=== PATIENT | female | born 1970 | race Caucasian/White ===

== ENCOUNTER 2019-03-21 08:56 | Emergency (ER) | payer BC ==
--- OUTSIDE RECORDS SUMMARY | 2019-03-21 08:58 | XMS REPORT ---
:1970 Author Organization eClinicalWorks Care Team Providers Name Role Phone Harshad Rosario Provider Role Unavailable Allergies, Adverse Reactions, Alerts Substance Reaction Event Type Zoloft blurred vision Drug Allergy Celexa blurred vision Drug Allergy BuSpar made anxiety worse Drug Allergy Problems Problem Type Condition Code Onset Dates Condition Status Problem Cramp in muscle R25.2 Active Problem Depression with anxiety F41.8 Active Problem Elevated blood pressure reading R03.0 Active without diagnosis of hypertension Assessment Cough R05 Active Assessment Epigastric abdominal pain R10.13 Active Problem Seasonal allergic rhinitis, J30.2 Active unspecified trigger Problem Epigastric abdominal pain R10.13 Active Problem Pharyngitis, unspecified etiology J02.9 Active Problem Rosacea L71.9 Active Problem Lumbar sprain S33.5XXA Active Problem Cough R05 Active Problem Tendinitis M77.9 Active Medications Medication Code Code Instructions Start End Status Dosage System Date Date Prozac [facility] 10988265888 10 MG Orally Active 1 capsule Once a day in the morning NuvaRing [facility] 51881351248 0.12-0.015 Active 1 ring MG/24HR Vaginal Cyclobenzaprine ND 19521111319 10 MG Orally Active 1 tablet HCl Three times a as needed day Omeprazole ND 12189772581 40 MG Orally Jun 06, Active 1 capsule Once a day 2019 Results No Known Results Summary Purpose eClinicalWorks Submission
--- OUTSIDE RECORDS SUMMARY | 2019-03-21 08:58 | XMS REPORT ---
:1970 Author Organization eClinicalWorks Care Team Providers Name Role Phone Keesha Sandoval Provider Role Unavailable Allergies, Adverse Reactions, Alerts Substance Reaction Event Type Zoloft blurred vision Drug Allergy Celexa blurred vision Drug Allergy BuSpar made anxiety worse Drug Allergy Problems Problem Type Condition Code Onset Dates Condition Status Assessment Pharyngitis, unspecified etiology J02.9 Active Problem Elevated blood pressure reading R03.0 Active without diagnosis of hypertension Assessment Seasonal allergic rhinitis, J30.2 Active unspecified trigger Problem Seasonal allergic rhinitis, J30.2 Active unspecified trigger Problem Cramp in muscle R25.2 Active Problem Pharyngitis, unspecified etiology J02.9 Active Problem Lumbar sprain S33.5XXA Active Problem Depression with anxiety F41.8 Active Problem Tendinitis M77.9 Active Problem Rosacea L71.9 Active Medications Medication Code Code Instructions Start End Status Dosage System Date Date NuvaRing [facility] 90075202604 0.12-0.015 Active 1 ring MG/24HR Vaginal Prozac ND 03387713108 10 MG Orally Active 1 capsule Once a day in the morning Cyclobenzaprine ND 56004099498 10 MG Orally Active 1 tablet HCl Three times a as needed day Results Name Result Date Reference Range Unit Abnormality Flag STREP A RAPID ----Result NEG [id number] Summary Purpose eClinicalWorks Submission
--- OUTSIDE RECORDS SUMMARY | 2019-03-21 08:58 | XMS REPORT ---
:1970 Author Organization eClinicalWorks Care Team Providers Name Role Phone Sparkle Patriciay Provider Role Unavailable Allergies, Adverse Reactions, Alerts Substance Reaction Event Type Zoloft blurred vision Drug Allergy Celexa blurred vision Drug Allergy BuSpar made anxiety worse Drug Allergy Problems Problem Type Condition Code Onset Dates Condition Status Problem Depression with anxiety F41.8 Active Problem Rosacea L71.9 Active Problem Lumbar sprain S33.5XXA Active Problem Stress at home F43.9 Active Problem Seasonal allergic rhinitis, J30.2 Active unspecified trigger Problem Gastroesophageal reflux disease K21.0 Active with esophagitis Problem Cough R05 Active Problem Tendinitis M77.9 Active Problem Pharyngitis, unspecified etiology J02.9 Active Problem Epigastric abdominal pain R10.13 Active Assessment Gastroesophageal reflux disease K21.0 Active with esophagitis Problem Cramp in muscle R25.2 Active Assessment Stress at home F43.9 Active Problem Elevated blood pressure reading R03.0 Active without diagnosis of hypertension Medications Medication Code Code Instructions Start End Status Dosage System Date Date Omeprazole [facility] 06264535203 40 MG Orally Jun 06, Active 1 capsule Once a day 2018 Prozac [facility] 91054768172 10 MG Orally Active 1 capsule Once a day in the morning Cyclobenzaprine [facility] 92535772315 10 MG Orally Active 1 tablet HCl Three times a as needed day NuvaRing [facility] 24494457188 0.12-0.015 Active 1 ring MG/24HR Vaginal Results No Known Results Summary Purpose eClinicalWorks Submission
--- OUTSIDE RECORDS SUMMARY | 2019-03-21 08:59 | XMS REPORT ---
:1970 Author Organization eClinicalWorks Care Team Providers Name Role Phone Jeniffer Patriciaa Provider Role Unavailable Allergies, Adverse Reactions, Alerts Substance Reaction Event Type Zoloft blurred vision Drug Allergy Celexa blurred vision Drug Allergy BuSpar made anxiety worse Drug Allergy Problems Problem Type Condition Code Onset Dates Condition Status Problem Rosacea L71.9 Active Problem Cough R05 Active Problem Tendinitis M77.9 Active Problem Contusion of right hand, initial S60.221A Active encounter Problem Gastroesophageal reflux disease K21.0 Active with esophagitis Problem Weight gain R63.5 Active Problem Pharyngitis, unspecified etiology J02.9 Active Problem Epigastric abdominal pain R10.13 Active Problem Stress at home F43.9 Active Problem Seasonal allergic rhinitis, J30.2 Active unspecified trigger Assessment Elevated blood pressure reading R03.0 Active without diagnosis of hypertension Assessment Gastroesophageal reflux disease K21.0 Active with esophagitis Assessment Weight gain R63.5 Active Problem Cramp in muscle R25.2 Active Problem Elevated blood pressure reading R03.0 Active without diagnosis of hypertension Assessment Depression with anxiety F41.8 Active Problem Depression with anxiety F41.8 Active Problem Lumbar sprain S33.5XXA Active Medications Medication Code Code Instructions Start End Status Dosage System Date Date NuvaRing [facility] 87324150384 0.12-0.015 Active 1 ring MG/24HR Vaginal Prozac [facility] 67488002524 10 MG Orally Active 1 capsule Once a day in the morning Cyclobenzaprine [facility] 43736324742 10 MG Orally Active 1 tablet HCl Three times a as needed day Omeprazole [facility] 79227176168 40 MG Orally Jun 06, Active 1 capsule Once a day 2018 Results No Known Results Summary Purpose eClinicalWorks Submission
[2019-03-21] MEDS ORDERED: IBUPROFEN 200 MG TAB PO ONE (09:16)
[2019-03-21] MEDS ORDERED: ACETAMINOPHEN 325 MG TABLET ONE (09:16)
[2019-03-21] MEDS ORDERED: IBUPROFEN 400 MG TAB ONE (09:16)
--- NOTE | 2019-03-21 09:35 | RAD REPORT ---
EXAM DESCRIPTION: RAD - Foot Left 3 View - 03/21/2019 9:28 am CLINICAL HISTORY: PAIN COMPARISON: No comparisons FINDINGS: Prominent posterior and plantar calcaneal spurs are noted. No acute fracture or dislocatio n evident.
--- NOTE | 2019-03-21 09:51 | ER ---
Nurse's Notes [facility] Name: Tamika Fuller Age: 48 yrs Sex: Female : 1970 Arrival Date: 03/21/2019 Time: 09:00 Bed 16 Private MD: None, None Diagnosis: Pain in left foot Presentation: 03/21 09:09 Presenting complaint: Patient states: was walking and left foot seized up on he, can;t iw put pressure on foot now. Transition of care: patient was not received from another setting of care. Onset of symptoms was March 21, 2019. 09:09 Method Of Arrival: Wheelchair iw 09:09 Acuity: SUSANNE 4 iw 09:10 Transition of care: patient was not received from another setting of care. Onset of tw2 symptoms was March 21, 2019. Risk Assessment: Do you want to hurt yourself or someone else? Patient reports no desire to harm self or others. Initial Sepsis Screen: Does the patient meet any 2 criteria? No. Patient's initial sepsis screen is negative. Does the patient have a suspected source of infection? No. Patient's initial sepsis screen is negative. Care prior to arrival: None. 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 - Social history:: Smoking status: . - Ebola Screening: : Patient denies travel to an Ebola-affected area in the 21 days before illness onset. Screenin:09 Abuse screen: Denies threats or abuse. Nutritional screening: No deficits noted. tw2 Tuberculosis screening: No symptoms or risk factors identified. Fall Risk None identified. Assessment: 09:16 General: Appears in no apparent distress. Behavior is calm, cooperative, appropriate tw2 for age. Pain: Complains of pain in left foot. Neuro: Level of Consciousness is awake, alert, obeys commands, Oriented to person, place, time, situation. Cardiovascular: Patient's skin is warm and dry. Respiratory: Airway is patent Respiratory effort is even, unlabored, Respiratory pattern is regular, symmetrical. GI: No signs and/or symptoms were reported involving the gastrointestinal system. : No signs and/or symptoms were reported regarding the genitourinary system. EENT: No signs and/or symptoms were reported regarding the EENT system. Derm: No signs and/or symptoms reported regarding the dermatologic system. Musculoskeletal: Circulation, motion, and sensation intact. Range of motion: intact in all extremities, Reports pain in left foot. Vital Signs: 09:11 BP 134 / 108; Pulse 101; Resp 16 S; Temp 97.4; Pulse Ox 98% on R/A; Weight 112.49 kg; iw Height 5 ft. 8 in. (172.72 cm); Pain 7/10; 10:09 BP 128 / 85; Pulse 84; Resp 17; Pulse Ox 99% on R/A; tw2 09:11 Body Mass Index 37.71 (112.49 kg, 172.72 cm) iw ED Course: 09:00 Patient arrived in ED. mr 09:00 None, None is Private Physician. mr 09:01 Justin West [facility]-C [facility]. la1 09:01 Estevan Fish MD is Attending Physician. la1 09:01 Bed in low position. Call light in reach. tw2 09:06 Alanna Hernandez, RN is Primary Nurse. tw2 09:09 Arm band placed on. tw2 09:10 Triage completed. iw 09:17 No provider procedures requiring assistance completed. Patient did not have IV access tw2 during this emergency room visit. 09:28 Foot Left 3 View XRAY In Process Unspecified. EDMS Administered Medications: 09:19 Drug: Motrin 600 mg Route: PO; tw2 10:08 Follow up: Response: No adverse reaction tw2 09:19 Drug: Tylenol 650 mg Route: PO; tw2 10:08 Follow up: Response: No adverse reaction tw2 Outcome: 09:50 Discharge ordered by . la1 10:09 Discharged to home via wheelchair, with significant other. tw2 10:09 Condition: stable 10:09 Discharge instructions given to patient, significant other, Instructed on discharge instructions, follow up and referral plans. medication usage, safety practices, Demonstrated understanding of instructions, follow-up care, medications, Prescriptions given X 1. 10:10 Patient left the ED. tw2 Signatures: Dispatcher [employer] Sylwia Carr Irene, RN RN Justin Goodwin, HIM SPECIALIST-C HIM SPECIALIST-Kathie1 Alanna Hernandez RN RN tw2
--- NOTE | 2019-03-21 09:51 | EDPHYS ---
Physician Documentation [facility] Name: Tamika Fuller Age: 48 yrs Sex: Female : 1970 Arrival Date: 03/21/2019 Time: 09:00 Bed 16 Private MD: None, None ED Physician Estevan Fish HPI: 03/21 09:10 This 48 yrs old Female presents to ER via Unassigned with complaints of Foot la1 Pain. 09:10 The patient presents with pain, that is acute. The complaints affect the lateral aspect la1 of left foot. Context: The problem was sustained at work. Onset: The symptoms/episode began/occurred just prior to arrival. Modifying factors: The symptoms are alleviated by nothing. the symptoms are aggravated by movement. Associated signs and symptoms: Pertinent negatives calf tenderness, numbness, tingling, warmth. Treatment prior to arrival includes: no previous treatment. Severity of symptoms: At their worst the symptoms were mild. The patient has not experienced similar symptoms in the past. 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 - Social history:: Smoking status: . - Ebola Screening: : Patient denies travel to an Ebola-affected area in the 21 days before illness onset. ROS: 09:11 Constitutional: Negative for fever, chills, and weight loss, Eyes: Negative for injury, la1 pain, redness, and discharge, Cardiovascular: Negative for chest pain, palpitations, and edema, Respiratory: Negative for shortness of breath, cough, wheezing, and pleuritic chest pain, Abdomen/GI: Negative for abdominal pain, nausea, vomiting, diarrhea, and constipation. 09:11 MS/extremity: Positive for pain, of the lateral side of left foot. Exam: 09:11 Constitutional: This is a well developed, well nourished patient who is awake, alert, la1 and in no acute distress. Head/Face: Normocephalic, atraumatic. Chest/axilla: Normal chest wall appearance and motion. Nontender with no deformity. No lesions are appreciated. Back: No spinal tenderness. No costovertebral tenderness. Full range of motion. Skin: Warm, dry with normal turgor. Normal color with no rashes, no lesions, and no evidence of cellulitis. MS/ Extremity: Pulses equal, no cyanosis. Neurovascular intact. Full, normal range of motion. Vital Signs: 09:11 BP 134 / 108; Pulse 101; Resp 16 S; Temp 97.4; Pulse Ox 98% on R/A; Weight 112.49 kg; iw Height 5 ft. 8 in. (172.72 cm); Pain 7/10; 10:09 BP 128 / 85; Pulse 84; Resp 17; Pulse Ox 99% on R/A; tw2 09:11 Body Mass Index 37.71 (112.49 kg, 172.72 cm) iw MDM: 09:03 Patient medically screened. la1 09:49 Data reviewed: vital signs, nurses notes, radiologic studies, plain films. 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 03/21 09:09 Order name: Foot Left 3 View XRAY; Complete Time: 09:42 la1 12 09:49 Order name: Ortho shoe; Complete Time: 09:59 la1 Administered Medications: 09:19 Drug: Motrin 600 mg Route: PO; tw2 10:08 Follow up: Response: No adverse reaction tw2 09:19 Drug: Tylenol 650 mg Route: PO; tw2 10:08 Follow up: Response: No adverse reaction tw2 Disposition: 16:44 Co-signature as Attending Physician, Estevan Fish MD I agree with the assessment and kdr plan of care. Disposition: 03/21/19 09:50 Discharged to Home. Impression: Pain in left foot. - Condition is Stable. - Discharge Instructions: Musculoskeletal Pain, Foot Pain. - Prescriptions for meloxicam 15 mg Oral tablet - take 1 tablet by ORAL route once daily; 15 tablet. - Medication Reconciliation Form, Thank You Letter, Work release form form. - Follow up: Private Physician; When: 2 - 3 days; Reason: Recheck today's complaints, Re-evaluation by your physician. - Problem is new. - Symptoms are unchanged. Signatures: Dispatcher [employer] EDAL Estevan Fish MD MD kdr Fanta Aguilar RN RN iw Justin West, SUPPLY CHAIN ASSISTANT-C SUPPLY CHAIN ASSISTANT-Kathie1 Alanna Hernandez RN RN tw2 Corrections: (The following items were deleted from the chart) 10:10 09:50 03/21/2019 09:50 Discharged to Home. Impression: Pain in left foot. Condition is tw2 Stable. Forms are Work release form, Medication Reconciliation Form, Thank You Letter, Antibiotic Education, Prescription Opioid Use. Follow up: Private Physician; When: 2 - 3 days; Reason: Recheck today's complaints, Re-evaluation by your physician. Problem is new. Symptoms are unchanged. la1
[2019-03-21 10:59] VITALS: TEMP 97.4
[2019-03-21 11:01] VITALS: BP 128/85; O2SAT 99
== END 2019-03-21 10:10 | disposition home or self-care (01) ==
LOC: ER 08:56
DX: M79.672 Pain in left foot (principal)
CPT/HCPCS: 99283

== ENCOUNTER 2023-11-30 12:03 | Day surgery (SDC) | payer BC ==
[2023-11-29 15:50] LABS: Absolute Basophils 0.1 K/uL (0-0.5); Absolute Eosinophils 0.2 K/uL (0-0.5); Absolute Lymphocytes (CBC) 2.7 K/uL (0.7-4.9); Absolute Monocytes 0.8 K/uL (0.1-1.3); Absolute Neutrophil 5.9 K/uL (1.8-8.0); Basophils % 0.5 % (0-1.3); Eosinophils % 2.1 % (0-4.4); Hematocrit 36.2 % (36.0-45.0); Hemoglobin 11.4 g/dL (12.0-15.0); Lymphocytes % 28.3 % (15.3-44.8); MCH 24.1 pg (27.0-35.0); MCHC 31.6 g/dL (32.0-36.0); MCV 76.4 fL (80-100); MPV 8.1 fL (7.6-11.3); Monocytes % 8.3 % (3.3-12.3); Neutrophils % 60.8 % (41.7-73.7); Platelets 302 thou/uL (152-406); RBC Red Blood Cell Count 4.73 M/uL (3.86-4.86); Red Cell Distribution Width 15.6 % (12.1-15.2)
--- NOTE | 2023-11-29 15:56 | RAD REPORT ---
EXAM DESCRIPTION: RAD - Chest Pa And Lat (2 Views) - 11/29/2023 3:50 pm CLINICAL HISTORY: pre op pending back mass removals Chest pain. COMPARISON: Chest Pa And Lat (2 Views) dated 09/01/2019 TECHNIQUE: PA and lateral views of the chest were obtained. FINDINGS: The lungs are hyperexpanded but clear. The heart is upper limit of normal in size. No frac ture or aggressive bony process. IMPRESSION: Hyperexpanded lungs without acute process identified. The USPSTF recommends annual screening for lung cancer with low-dose CT (LDCT) in adults aged 50 to 8 0 years who have a 20 pack-year smoking history and currently smoke or have quit within the past 15 y ears.
[2023-11-29 16:02] LABS: PT Prothrombin Time 12.3 SECONDS (9.4-12.5); PTT, Activated Partial Thromb 36.3 SECONDS (24.3-36.9); Protime INR 1.1
[2023-11-30] MEDS: Ringers Lactate 1,000 ML IV ONE (12:50)
[2023-11-30] MEDS ORDERED: LIDOCAINE 1% MPF 5 ML VIAL ONE (13:16)
[2023-11-30] MEDS ORDERED: dexAMETHasone 10 MG/ML VIAL ONE (13:38)
[2023-11-30] MEDS ORDERED: FENTANYL CITR 100 MCG/2 ML ONE (13:38)
[2023-11-30] MEDS ORDERED: propofoL 200 MG/20 ML VIAL IV ONE (13:38)
[2023-11-30] MEDS ORDERED: ONDANSETRON 4 MG/2 ML VIAL ONE (13:38)
[2023-11-30] MEDS ORDERED: MIDAZOLAM HCL 2 MG/2 ML INJ ONE (13:38)
[2023-11-30] MEDS ORDERED: KETOROLAC 30 MG/ML INJ ONE (13:38)
[2023-11-30] MEDS ORDERED: LIDOCAINE 2% MPF 5 ML VIAL ONE (13:38)
[2023-11-30] MEDS: CEFAZOLIN SODIUM 1 GM/VIAL ONE (13:58)
[2023-11-30] MEDS ORDERED: NS 0.9% VIAL 10 ML ONE (14:14)
--- NOTE | 2023-11-30 15:07 | P.BOP ---
Preoperative diagnosis: Right and left midback tender infected masses Postoperative diagnosis: same Primary procedure: 1. Excisional bx infected right midback subQ mass 5x4 with abscess drainage Secondary procedure: 2. Excisional biopsy left midback subQ mass 2x2cm Estimated blood loss: <10cc Specimen: mass Findings: as above Anesthesia: General Complications: None Drain(s): Other (wet to dry) Transferred to: Recovery Room Condition: Good
[2023-11-30 15:09] VITALS: O2SAT 100
[2023-11-30 16:48] VITALS: BP 131/74; TEMP 97
--- NOTE | 2023-11-30 18:03 | OP ---
Date of Procedure: 11/30/2023 Surgeon: Jorge Graham MD Preoperative Diagnosis: Right and left mid shake backboard notcher infected masses. Postoperative Diagnosis: Right and left mid shake backboard notcher infected masses. Procedures: 1.Excisional biopsy of infected right midback mass 5 x 4 cm with abscess drainage. 2.Excisional biopsy of left mid back 2 x 2 cm subcutaneous mass. Both of them are subcutaneous masses. Specimens: Subcutaneous masses. Findings: The patient has two subcutaneous masses, but the one on the right side not only is large b ut also infected with abscess. That area had to be packed. Anesthesia: General plus local. Packing: Wet-to-dry. Indications: This is a case of a 53-year-old patient with two masses, tender, one of them is red. S he has been on antibiotics for some time and it is still erythematosus. The benefits, alternatives, and risks of excision of two masses were fully explained, which include, but not limited to, infectio n, bleeding, damage to adjacent structures, anesthesia complication, recurrence, CA, and even . She also understands this may not relieve any symptoms. She might need more than one surgical inter vention. She understood, signed a consent. Description Of Procedure: The areas of concern were marked by me and the patient in the holding room . Patient was brought to the operating room, placed in supine position. Anesthesia was done without complication. The back areas were prepped and draped in a sterile fashion. Local anesthesia was ap plied. We proceeded to do the one that does not look infected and made a wedge incision in that area . That incision was carried down all the way down to deep subcutaneous tissue. The mass was excised on the left of the mid back. The patient tolerated the procedure well. Irrigation was done. We cl osed it with chromic and nylon. Hemostasis was obtained before closure. Local anesthetic was applie d. Then we covered that area with Neosporin and Tegaderm to avoid cross contamination and then we we nt into the right mid back region. That area is larger. It is red. I did see a little bit of pus c oming right in day surgery before moving to the OR. So we proceeded then to make a wedge incision, b ut this one was deep, it was large, and it is full of pus. So we removed the mass completely all the way down to deep subcutaneous tissue, but we did not close the wound. We obtained hemostasis, appli ed wet-to-dry dressing and local anesthetic, and covered with sterile dressings. Patient tolerated t he procedure well. Sponge counts and instrument counts were correct. Patient was sent to recovery i n stable condition. GONZÁLEZ/LISA Voice ID: [id number] Report ID: [id number]
--- NOTE | 2023-11-30 18:09 | DS ---
Date of Discharge: 11/30/2023 Diagnosis: Right and left mid back seam stitcher masses. Procedure: Excisional biopsy of right mid back and left mid back subcutaneous masses. Condition: Stable. Disposition: Home. Activity: As tolerated. No heavy lifting. Plan: Follow up in my office, this Sunday. Call for appointment. She can change wet-to-dry dressin g, the area open if she cannot do so, then at least come on Sunday, so we can teach her how to do trang ssing changes. She is already on antibiotics. GONZÁLEZ/LISA Voice ID: [id number] Report ID: [id number]
--- NOTE | 2023-12-04 18:02 | EKG ---
Test Date: 2023-11-29 Test Time: 15:30:29 Billboard Poster: JAVIER MEASUREMENT RESULTS: Intervals: Rate: 91 NV: 160 QRSD: 84 QT: 336 QTc: 413 [place]: P: 17 NV: 160 QRS: -17 T: 90 INTERPRETIVE STATEMENTS: Normal sinus rhythm Possible Left atrial enlargement RSR' or QR pattern in V1 suggests right ventricular conduction delay Inferior infarct, age undetermined Anterolateral infarct, age undetermined Abnormal ECG Compared to ECG 09/01/2019 16:45:30 RSR' in V1 or V2 now present Myocardial infarct finding still present Electronically Signed On 12-04-23 17:51:54 CDT by Fredo Estrada
== END 2023-11-30 16:20 | disposition home or self-care (01) ==
LOC: PRE 12:03 → OR 16:20
PROVIDERS: ATTEND Surgery
PROC: 0JB70ZZ Excision of Back Subcutaneous Tissue and Fascia, Open Approach (ICD-10-PCS; principal; 2023-11-30 14:00)
DX: L72.0 Epidermal cyst (principal); L08.89 Other specified local infections of the skin and subcutaneous tissue
CPT/HCPCS: 11406; 11402; 93005; 85025; 80048; 36415; 85610; 88304; 85730; 71046; A4216; J2704; J2001 ×2; J2250; J3010; J1100; J2405; J7120; J0690